=== PATIENT | male | born 1990 | race Two or more races ===

== ENCOUNTER 2022-10-26 16:13 | Emergency (ER) | payer SELFPAY ==
[~2022-10-26] VITALS: Ht 167.6 cm; Wt 77.1 kg
[2022-10-26] MEDS ORDERED: LORAZEPAM 1 MG TABLET ONE (16:36)
[2022-10-26] MEDS ORDERED: LORAZEPAM 1 MG TABLET PO ONE (17:00)
[2022-10-26 17:05] VITALS: BP 128/84; TEMP 98; O2SAT 100
== END 2022-10-26 17:13 | disposition home or self-care (01) ==
LOC: ER 17:09
DX: F41.9 Anxiety disorder, unspecified (principal)